=== PATIENT | male | born 1985 | race Two or more races ===

== ENCOUNTER 2025-01-27 08:03 | Outpatient (RCR) | payer BC, SELFPAY ==
--- NOTE | 2025-01-27 08:38 | PTNOTE_ITS ---
PT OP Initial Eval Patient Information Outpatient Physical Therapy Treatment Date: 01/27/25 Visit Reasons: LEFT KNEE PAIN Medical Diagnosis: M25.562 Start of Care: 01/27/25 Date of Onset: 2 months ago Smoking Status Smoking Status: Never smoker Initial Assessment Subjective: Pt is 40 yr old male who c/o L knee pain x2 months, he says the fibula shifts out of place and causes pain. He has been going to the chiropractor to move it back every other day. This pain limits squatting, jogging, lifting and putting pants on. He reports LBP that runs down into the glute and posterior LE and lateral knee to the ankle. PMH: none reported Imaging: with provider Pt goal: to figure out exactly what's going on Objective: L knee AROM: Flexion: 120 deg Extension: full SLR: 25 deg Varus/valgus: no gapping Pilar's: negative Anterior drawer negative Fibular head mobilization: no AP translation R SLR: positive Trunk AROM: FB: 20% of full Extension: 30% with pain in L/S Assessment: Pt presents with limited L SLR and trunk forward bending ROM and positive neural tension of L LE consistent with lumbar radiculopathy. Pt has good ligamentous stability of the L knee and negative special testing. I wasn't able to move the fibular head and the pain in that region may be referred from L/S. Pt not likely going to meet long-term goals for the L knee since that pain is likely radiating from the lumbar spine. PT recommends further diagnostic imaging of L/S such as MRI. Short Term and Correctional Officer Goals Eval and D/C Treatment Plan Eval and D/C Frequency and Duration: 1x Certification Dates: 01/27/25 Procedure Charges OP PT Eval Mod Complex 30 minutes: Yes
== END 2025-02-10 23:59 | disposition home or self-care (01) ==
LOC: CPTX 08:03
DX: M25.562 Pain in left knee (principal)
CPT/HCPCS: 97162

== ENCOUNTER 2025-01-27 15:53 | Emergency (ER) | payer OTHER, SELFPAY ==
[2025-01-27 15:54] VITALS: BMI 25.0
[2025-01-27 16:16] VITALS: BP 131/83; PULSE 72; RESP 18; TEMP 36.8; O2SAT 98
--- NOTE | 2025-01-27 16:33 | XR_ITS ---
Examination: Left hand 2 views TECHNIQUE: AP lateral left hand 2 views Date and time: January 27, 2025 1635 hours INDICATIONS: Laceration to the hand today, hand pain FINDINGS: Soft tissue air second metacarpophalangeal joint. No fracture No foreign body IMPRESSION: Negative for opaque foreign body
--- NOTE | 2025-01-27 16:34 | EDNOTE_ITS ---
Upper Extremity Injury RME/HPI General Chief Complaint: Hand/Wrist Problems Stated Complaint: LEFT HAND LAC AT WORK Time Seen by Provider: 01/27/25 15:57 Arrival date/time: 01/27/25 15:53 RME / HPI RME / HPI narrative: 40-year-old male patient came in for evaluation regarding left hand injury. Patient was working with a machine, and got pinned down with 2 metals, resulting to 3 cm irregular shaped laceration to the right hand palmar aspect. Able to bend and extend the fingers without any limitation. Denies any other injury no medications taken prior to arrival. Incident happened few minutes prior to ER visit. Related Data Previous Rx's ?Medication ?Instructions ?Recorded cephalexin 500 mg capsule 500 mg PO TID 7 days #21 cap s 01/27/25 ibuprofen 800 mg tablet 800 mg PO Q8H PRN pain #30 t abs 01/27/25 Allergies Allergy/AdvReac Type Severity Reaction Status Date / Time No Known Allergies Allergy Verified 01/27/25 15:56 Review of Systems Review of Systems Narrative Review of Systems: Review of system reviewed and within normal limits except mentioned in HPI ED Exam Narrative Physical exam: VITAL SIGNS: Reviewed. GENERAL APPEARANCE: Alert and interactive, follows commands, no acute distress, HEAD AND FACE: Non-traumatic. ENT: PERRL, pink conjunctivitis, eyelid no trauma, Mucous membrane moist. NECK: Supple, nontender, no nuchal rigidity. CHEST: No tenderness, no crepitus, no paradoxical movement, no retractions. LUNGS: Clear, well ventilated, symmetric, no rales, no wheezing, no ronchi, no stridor, good breath sounds bilaterally. HEART: Regular rate, regular rhythm, no murmur, no gallops. ABDOMEN: Soft, positive bowel sounds, nondistended, no guarding, nontender, no rebound, no masses, RECTAL: Deferred. GENITAL: Deferred. NEUROLOGICAL: Gross motor function intact sensory function intact, Appropriate for age. MUSCULOSKELETAL: low back nontender, full range of motion. EXTREMITIES: +3 cm irregular shaped laceration, left hand palmar aspect at the second metacarpal area, full range of motion. SKIN: Color pink, dry, no rash, no lacerations, no abrasions, no contusions. LYMPHATICS: Deferred. Course Quality Measures none Orders Category Date Time Status XR hand LT 2V Stat Exams 01/27/25 16:33 Completed Ibuprofen Tab [Motrin Tab] Med 01/27/25 16:33 Discontinued 800 mg PO X1 ONE cephALEXin [Keflex] Med 01/27/25 16:36 Discontinued 500 mg PO X1 ONE Vital Signs Vital signs: Vital Signs Temperature 98.2 F 01/27/25 16:16 Pulse Rate 72 01/27/25 16:16 Respiratory Rate 18 01/27/25 16:16 Blood Pressure 131/83 H 01/27/25 16:16 Pulse Oximetry (%) 98 01/27/25 16:16 Oxygen Delivery Method Room Air 01/27/25 16:16 PROCEDURES: Laceration Laceration 1: Site: hand Size (cm): 3 Description: irregular Depth: simple, single layer Local Anesthetic: lidocaine 1% Amount of anesthesia used (mL): 10 Pre-repair: wound explored Skin layer closed with: nylon Suture size (cm): 4-0 Number of sutures: 7 Technique: simple, interrupted Extremity Injury MDM Narrative MDM Narrative:: 40-year-old male patient came in for evaluation regarding left hand injury. Patient was working with a machine, and got pinned down with 2 metals, resulting to 3 cm irregular shaped laceration to the right hand palmar aspect. Able to bend and extend the fingers without any limitation. Denies any other injury no medications taken prior to arrival. Incident happened few minutes prior to ER visit. Repair and suturing was done by me. See procedure notes X-ray of the hand showed no acute pathology noted Patient vaccination is up-to-date Was given Motrin and Keflex Patient data External records reviewed:: None Clinical information provided by:: patient Social determinants that could affect healthcare access:: none Patient has the following chronic illnesses:: None How is presenting disease/condition affected by chronic disease/condition?: no chronic disease Evaluation data The following diagnostics were reviewed and interpreted by me:: lab results Lab and/or radiology exams considered but not ordered:: None Interpretation Summary: See results [facility] Medications / Prescriptions Medications or Prescriptions considered but not ordered:: none Medication administrations:: Medication Administration History Discontinued Medications Cephalexin HCl (Cephalexin 250 Mg Capsule) 500 mg PO X1 ONE Stop: 01/27/25 16:37 Last Admin: 01/27/25 17:00 Dose: 500 mg Documented By: Ibuprofen (Ibuprofen Tab 400 Mg Tablet) 800 mg PO X1 ONE Stop: 01/27/25 16:34 Last Admin: 01/27/25 17:00 Dose: 800 mg Documented By: Keflex and Motrin Consultations Consultation(s) initiated? (list below): No Diagnosis Upper Extremity Injury Differential Diagnosis: other (Hand laceration) Most likely diagnosis given after review of the tests above:: Left hand laceration Admission Indicated Admission indicated?: not indicated Explain why admission is indicated or not indicated:: Stable Admission Request Was there a request for admission?: No Disposition Plan Disposition Plan: Discharge Discharge Attestation Discharge Attestation: The patient and all family members were given an opportunity to ask questions and understood the discharge instructions. Discharge instructions specifically effects, indications for sooner follow up or return to the emergency department, and the expected course of current diagnosis. Patient condition: Stable Discharge Plan Plan Patient Disposition: HOME (Self Care) Discharge Disposition comment: Hand laceration Prescriptions/Referrals Prescriptions/Med Rec: New cephalexin 500 mg capsule 500 mg PO TID 7 Days Qty: 21 0RF ibuprofen 800 mg tablet 800 mg PO Q8H PRN (Reason: pain) Qty: 30 0RF Referrals: No Primary/Family,Physician [Primary Care Provider] - In 1 week Problem List Clinical Impression: Hand laceration Patient/Caregiver Discharge Instructions Discharge Activity: activity as tolerated Education Materials: ED Laceration: All Closures Additional Instructions: Thank you for the opportunity for serving you today. You are stable for discharged . You are advised to: Follow-up with your PCP in 1 to 2 days Return to ED for worsening of symptoms Increase oral fluids Take medication as prescribed Daily dressing with bacitracin as needed For removal of sutures in 10 days Print Language: Pashto Stand Alone Forms: Rhona Award Info., Patient Portal Info Letter PA/COBOL DEVELOPER Supervising Physician RUPINDER/GENARO Supervising Physician: MD Loretta
[2025-01-27] MEDS: IBUPROFEN TAB 400 MG TABLET 800 MG PO (17:00)
== END 2025-01-27 19:20 | disposition home or self-care (01) ==
PROVIDERS: Emergency Provider Family Medicine
DX: S61.412A Laceration without foreign body of left hand, initial encounter (principal); W30.89XA Contact with other specified agricultural machinery, initial encounter; Y93.89 Activity, other specified; Y92.89 Other specified places as the place of occurrence of the external cause; Y99.0 Civilian activity done for income or pay
CPT/HCPCS: 12002; 73120; 99283; A9270